=== PATIENT | female | born 1950 | race Native Hawaiian/Other Pacific Islander ===

== ENCOUNTER 2019-03-13 01:27 | Emergency (ER) | payer OTHER ==
[~2019-03-13] VITALS: Ht 165.1 cm; Wt 66.7 kg
[2019-03-13 01:27] VITALS: BP 136/70; TEMP 97.1
[2019-03-13 02:19] LABS: PLATELET COUNT 195 K/uL (152-353)
[2019-03-13 02:50] LABS: POTASSIUM 3.9 mmol/L (3.6-5.2)
[2019-03-13] MEDS ORDERED: CLOP75TA2 PO (03:30)
[2019-03-13] MEDS ORDERED: ASPIR-LOW81 MG PO (03:30)
[2019-03-13] MEDS ORDERED: ROWEEPRA XR750 MG PO (03:31)
[2019-03-13] MEDS ORDERED: VITAMIN B-12100 MC1 PO (03:32)
[2019-03-13] MEDS ORDERED: PHENYTOIN EX100 MG PO (03:32)
[2019-03-13] MEDS ORDERED: LORA0.5T17 PO (03:33)
[2019-03-13] MEDS ORDERED: LIPITOR80 MG PO (03:34)
[2019-03-13] MEDS ORDERED: MIRALAX3350 N1 PO (03:34)
[2019-03-13] MEDS ORDERED: GABA300C2 PO (03:35)
[2019-03-13] MEDS ORDERED: TELMISARTAN20 MG PO (03:36)
== END 2019-03-13 03:05 | disposition other institution (70) ==
LOC: ED 01:30
PROVIDERS: Emergency Medicine
DX: R46.89 Other symptoms and signs involving appearance and behavior (principal); I44.7 Left bundle-branch block, unspecified; Z04.6 Encounter for general psychiatric examination, requested by authority; R82.998 Other abnormal findings in urine
CPT/HCPCS: 80053; 81000; 85027; 87077; 87086; 87088; 87186; 93005; 99283; 99285